=== PATIENT | male | born 1995 | race Two or more races ===

== ENCOUNTER 2017-01-27 21:11 | Emergency (ER) | payer OTHER ==
[~2017-01-27] VITALS: Ht 165.1 cm; Wt 90.7 kg
[2017-01-27 22:04] VITALS: BP 145/77
[2017-01-27] MEDS ORDERED: ONDANSETRON PF 4 MG/2 ML VIAL. IV PRN (22:15)
[2017-01-27] MEDS ORDERED: ACETAMINOPHEN 325 MG TABLET PO PRN (22:15)
[2017-01-27] MEDS ORDERED: LIDOCAINE 2% 20 ML VIAL. IJ ONE (22:30)
[2017-01-27] MEDS ORDERED: CEPH500C PO (23:05)
--- NOTE | 2017-01-27 23:09 | PHYS DOC ---
General Chief Complaint: LACERATION/AVULSION Stated Complaint: RT HAND LACERATION WK COMP Time Seen by MD: 21:28 Source: patient Exam Limitations: no limitations Problems: History of Present Illness Initial Comments Patient is a 21-year-old male who comes to the emergency department with worker' s comp right hand injury. Patient states earlier today while changing out overhead lights the metal framing of the light cut through his gloves causing laceration injuries to his right distal second and third fingers. He states that pain was moderate initially but it is tolerable at this point, the wounds bled profusely initially without pulsatile flow and have slowed somewhat but are still bleeding rather heavily. No bony injuries as the cuts involve the soft tissue of the distal phalanges, no range of motion deficit. Patient is here for work from [place] and states his tetanus status is up-to-date. Onset: other Severity: moderate Pain/Injury Location: right 2nd finger, right 3rd finger Method of Injury: incised Modifying Factors: worse with jarring, worse with movement Allergies: Coded Allergies: No Known Drug Allergies (Unverified , 01/27/17) Past Medical History Medical History: no pertinent history Surgical History: noncontributory Social History Smoker: non-smoker Alcohol: none Drugs: none Review of Systems Constitutional: denies chills, denies fever, denies malaise Respiratory: denies cough, denies shortness of breath, denies wheezing Cardiovascular: denies chest pain, denies palpitations, denies syncope Gastrointestinal: denies abdominal pain, denies nausea, denies vomiting Musculoskeletal: see HPI Skin: see HPI Psychiatric/Neurological: denies headache, denies pre-existing deficit, denies weakness Physical Exam General Appearance: WD/WN, no apparent distress Neck: full range of motion, supple Cardiovascular/Respiratory: normal peripheral pulses, no respiratory distress Hand: normal ROM, laceration (approximately 1 cm area of the finger pad of the right second finger has been removed extends into the subcutaneous tissues and persistent oozing of blood is noted. The third finger laceration involves a large superficial flap-type injury, essentially the cut extends around the entire tip of the finger running along the lateral and medial aspects of the distal phalanx and connecting across the distal aspect of the affected digit. No nail involvement noted however essentially the entire anterior finger pad of the distal right phalanx has been elevated and is connected only by a 1 cm thin bridge of tissue just distal to the DIP finger crease. The tissue is blanched and on arrival bleeding is profuse.) Neurologic/Tendon: normal motor functions, normal tendon functions, responds to pain, no evidence tendon injury Psychiatric: alert, oriented x 3 Laceration/Wound Repair Laceration/Wound Repair : Wound Location: upper extremity Wound's Depth, Shape: flap Wound Length (cm): 3 Wound Explored: clean Betadine Prep?: Yes Anesthesia: 1% Lidocaine Volume Anesthetic (ccs): 5 Wound Debrided: minimal Wound Repaired With: sutures Suture Size/Type: 4:0, nylon Number of Sutures: 9 Layer Closure?: No Sterile Dressing Applied?: Yes Splint Applied?: Yes Type of Splint Applied: metal finger splint Progress Informed consent obtained. Prior to commencing I had a long discussion with the patient about the potential non-viability of the affected flap. After discussing various wound closure options including tissue adhesive, no closure, and suture repair I recommended suture repair to try to save the flap and provide a kl[place] kaah tissue pressure dressing. The patient was aware that the flap may not be getting enough blood supply and not adhere. Analgesia achieved with a digital block using 2% lidocaine without epinephrine 5 ML's, Betadine prep with normal saline irrigation then a total of 9 5-0 Ethilon sutures utilized to try to tack down the flap. After the wound edges were approximated with great difficulty due to persistent bleeding and the thin and friable nature of the flap a sterile dressing was applied and metal finger splints applied to immobilize the digit. The patient tolerated the procedure well no complications after the procedure the wound edges of the flap did remain blanched at the central portion of the flap did assume a more pink appearance consistent with some blood flow. Wound care instructions were discussed as well as close physician follow-up see departure instructions. Orders, Labs, Meds I once again advised the patient after closure that it remained to be determined whether the flap would be viable. The second digit injury was cleaned by ED staff and a sterile dressing applied. No neurovascular compromise noted after sterile dressing/splint applied. The patient was given cephalexin empirically in the emergency department and a start pack of Tylenol 3 was dispensed to him. Signs and symptoms to monitor as well as indications for urgent medical care were discussed as well as [id number] and prescription pain medications. The patient's questions were answered to his satisfaction and he expressed agreement and understanding with the treatment plan. Departure Time of Disposition: 23:05 Disposition: 01 HOME, SELF-CARE Diagnosis: RUE distal 2nd/3rd fingertip amputations Condition: IMPROVED Patient Instructions: Fingertip Injuries and Amputations Additional Instructions: No use of right hand until cleared by doctor. As discussed, the viability of the repaired flap of the third finger remains in question due to poor blood supply. Keep wounds covered with sterile dressing until completely healed. Wash wounds twice daily with soap and warm water, blot dry. Change dressing after each wash. Allow the wound to air dry 1 hour daily. A Tylenol with codeine start pack was dispensed to you in the emergency department, take one every 6 hours as needed for severe breakthrough pain. [id number] ibuprofen for baseline discomfort. Prescription: Cephalexin Follow-up with a doctor in 2-3 days for a wound check. Follow-up with your employer regarding Worker's Compensation. Return to ED with new or changing symptoms. PER TRENT DO Jan 27, 2017 23:09
[2017-01-27] MEDS ORDERED: CEPHALEXIN 250 MG CAPSULE PO ONE (23:30)
[2017-01-27] MEDS ORDERED: ACETAMINOPHEN/CODEINE 300/30MG 4TABLET STARTPACK. PO ONE (23:30)
== END 2017-01-27 23:25 | disposition home or self-care (01) ==
LOC: ER 21:11
DX: S61.210A Laceration without foreign body of right index finger without damage to nail, initial encounter (principal); S61.212A Laceration without foreign body of right middle finger without damage to nail, initial encounter; W25.XXXA Contact with sharp glass, initial encounter; Y93.89 Activity, other specified; Y99.8 Other external cause status; Y92.89 Other specified places as the place of occurrence of the external cause
CPT/HCPCS: 12002; 99283-25; J2001